=== PATIENT | female | born 1970 | race Caucasian/White ===

== ENCOUNTER 2016-07-15 18:51 | Emergency (ER) | payer MEDICARE | END 2016-07-15 21:30 | disposition home or self-care (01) | LOC: ER1 18:51 | DX: M17.11 Unilateral primary osteoarthritis, right knee (principal); F41.9 Anxiety disorder, unspecified; Z79.899 Other long term (current) drug therapy | CPT/HCPCS: 73564; 99283 ==

== ENCOUNTER → 2020-10-17 | Outpatient (CLI) | payer MEDICARE ==
[~2020-10-17] MED LIST: ATIVAN2 MG PO; CELEXA40 MG PO; ECPIRIN325 MG PO; ESTRACE1 MG PO; IBU800 MG PO; KEFLEX500 MG PO; NORCO 7.5-3251 EACH PO; VITAMIN C500 M1 PO
[2020-10-17 08:33] LABS: HEMOGLOBIN 12.3 gm/dl (12.3-15.3); RED BLOOD COUNT 4.64 M/UL (4.00-5.10); WHITE BLOOD COUNT 8.1 K/UL (4.5-11.0)
[2020-10-17 08:56] LABS: BUN/CREATININE RATIO 13 (0-10)
[2020-10-18 07:12] LABS: VITAMIN D, 25-HYDROXY 16.7 ng/mL (30.0-100.0)
[2020-10-18 09:13] LABS: THYROXINE (T4) 7.8 ug/dL (4.5-12.0)
== END ==
LOC: LAB 07:25
PROVIDERS: Nurse Practitioner
DX: R53.83 Other fatigue (principal); Z13.220 Encounter for screening for lipoid disorders; E55.9 Vitamin D deficiency, unspecified
CPT/HCPCS: 36415; 80053; 80061; 84436; 84443; 84480; 85025

== ENCOUNTER → 2020-11-11 | Outpatient (CLI) | payer MEDICARE | LOC: EXRD 10-29 09:30 | DX: E83.51 Hypocalcemia (principal); Z79.83 Long term (current) use of bisphosphonates; M85.88 Other specified disorders of bone density and structure, other site | CPT/HCPCS: 77080 ==